=== PATIENT | female | born 1955 | race Caucasian/White ===

== ENCOUNTER → 2025-01-16 13:59 | Outpatient (REF) | payer OTHER, SELFPAY | LOC: HWRAD 13:59 | PROVIDERS: ATTENDING PHYSICIAN Podiatrist Foot & Ankle Surgery; FAMILY PHYSICIAN Family Medicine | DX: S90.32XA Contusion of left foot, initial encounter (principal) | CPT/HCPCS: 73630 ==

== ENCOUNTER → 2025-03-23 13:24 | Outpatient (REF) | payer OTHER, SELFPAY | LOC: MRI 3T 13:24 | PROVIDERS: ATTENDING PHYSICIAN Podiatrist Foot & Ankle Surgery; FAMILY PHYSICIAN Family Medicine | DX: M24.275 Disorder of ligament, left foot (principal); S90.32XD Contusion of left foot, subsequent encounter | CPT/HCPCS: 73718 ==